=== PATIENT | female | born 1960 | race Caucasian/White ===

== ENCOUNTER 2022-04-09 13:08 | Emergency (ER) | payer SELFPAY ==
[~2022-04-09] VITALS: Ht 165.1 cm; Wt 68.2 kg
[2022-04-09 14:29] LABS: BASO % 0.3 % (0.0-1.0); LYMPH # 0.6 10^3/uL (1.5-5.0); LYMPH % 19.8 % (24.0-44.0); MEAN CORPUSCULAR HEMOGLOBIN 29.3 pg (27.0-33.0); MEAN CORPUSCULAR HGB CONC 33.3 g/dl (32.0-36.5); MONO # 0.4 10^3/uL (0.0-0.8); MONO % 11.8 % (2.0-8.0); NEUTROPHILS # 2.1 10^3/uL (1.5-8.5); NEUTROPHILS % 67.5 % (36.0-66.0); PLATELET COUNT, AUTOMATED 173 10^3/uL (150-450); RED BLOOD COUNT 4.09 10^6/uL (4.00-5.40); WHITE BLOOD COUNT 3.1 10^3/uL (4.0-10.0)
[2022-04-09 15:02] LABS: RSV AMPLIFICATION NEGATIVE (NEGATIVE)
[2022-04-09 15:15] LABS: CK-MB VALUE MASS < 1.0 NG/ML (<3.6); CPK CREATINE PHOSPHOKINASE 59 U/L (26-192); MB/CK RELATIVE INDEX 1.69 (< OR =4)
[2022-04-09 15:24] LABS: BLOOD UREA NITROGEN 14 MG/DL (7-18); CALCIUM LEVEL 8.5 MG/DL (8.8-10.2); CARBON DIOXIDE LEVEL 24 MEQ/L (21-32); CHLORIDE LEVEL 107 MEQ/L (98-107); CREATININE FOR GFR 0.77 MG/DL (0.55-1.30); GLOMERULAR FILTRATION RATE > 60.0 (>45); GLUCOSE, FASTING 113 MG/DL (70-100); MAGNESIUM LEVEL 2.1 MG/DL (1.8-2.4); SODIUM LEVEL 135 MEQ/L (136-145); THYROID STIMULATING HORMONE 0.736 uIU/ML (0.358-3.740)
[2022-04-09 16:02] LABS: CK-MB VALUE MASS < 1.0 NG/ML (<3.6); CPK CREATINE PHOSPHOKINASE 63 U/L (26-192); MB/CK RELATIVE INDEX 1.59 (< OR =4)
[2022-04-09 17:15] VITALS: BP 118/67
== END 2022-04-09 17:28 | disposition home or self-care (01) ==
LOC: EDBD 13:08 → M ED 13:08
DX: U07.1 COVID-19 (principal); R55 Syncope and collapse; J30.2 Other seasonal allergic rhinitis; Z87.891 Personal history of nicotine dependence